=== PATIENT | male | born 1990 | race Caucasian/White ===

== ENCOUNTER 2018-09-09 04:11 | Observation (INO) | payer BC ==
[~2018-09-09] VITALS: Ht 177.8 cm; Wt 90.7 kg
[2018-09-09] VITALS (18 sets, daily range): BP systolic 100–149; BP diastolic 45–95
--- NOTE | 2018-09-09 04:23 | ER Report ---
History and Physical Time Seen By MD: 04:20 Hx. of Stated Complaint: PATIENT STATES THAT HE HAS UPPER ABD. PAIN AND NAUSEA THAT HAS BEEN GOING ON FOR THE LAST HOUR THIS AM (CATHY BLANCO MD) Time Seen By MD: 07:15 (SACHA STYLES DO) HPI/ROS CHIEF COMPLAINT: abdominal pain HISTORY OF PRESENT ILLNESS: This is a 28 year old male. He has abdominal pain, central in the epigastric and periumbilical area, seems to spread outward to the right and left from there, severe. Nothing really makes it worse or better. No fevers or chills. Has been nauseated, but no vomiting. No history of abdominal surgeries. No problems with stomach, liver, pancreas, gallbladder. No sick co ntacts. Does not think any bad food or liquid exposures. Has increased gurgling in bowels and had a soft loose stool just prior to coming in to the hospital. Normal urination. (CATHY BLANCO MD) HPI/ROS Please see Dr. Blanco note (SACHA STYLES DO) Allergies: Coded Allergies: amoxicillin (Verified Allergy, Mild, rash, 09/09/18) Penicillins (Verified Allergy, Unknown, 09/09/18) Home Meds No Active Prescriptions or Reported Meds Reviewed Nurses Notes: Yes (CATHY BLANCO MD) Hx Substance Use Disorder: No Hx Alcohol Use: Yes (OCC.) (CATHY BLANCO MD) Constitutional Vital Sign - Last 24 Hours 09/09/18 09/09/18 09/09/18 09/09/18 04:11 04:13 04:15 04:17 Temp 98.3 Pulse ??? 59 Resp 18 B/P (MAP) 123/73 (90) 128/71 (90) 123/73 Pulse Ox 95 O2 Delivery Room Air 09/09/18 09/09/18 09/09/18 09/09/18 04:30 04:41 04:45 05:00 Pulse 65 B/P (MAP) 134/89 (104) 113/51 (71) 125/69 (87) Pulse Ox 92 09/09/18 09/09/18 09/09/18 09/09/18 05:30 05:45 06:03 06:03 Pulse 53 B/P (MAP) 138/76 (96) 136/64 (88) 144/82 (102) 144/82 (102) Pulse Ox 96 09/09/18 09/09/18 09/09/18 09/09/18 06:30 06:33 07:00 07:03 Pulse 66 64 B/P (MAP) 128/69 (88) 131/78 (95) Pulse Ox 95 91 09/09/18 09/09/18 09/09/18 09/09/18 07:28 07:48 08:08 08:08 Pulse 68 60 58 Pulse Ox 97 98 O2 Flow Rate 2.0 (SACHA STYLES DO) Physical Exam General Appearance: The patient is alert. Acute distress due to the pain. Non-toxic in appearance. Eyes: Pupils are equal, round. No pallor, injection or icterus. ENT: Mucous membranes are moist. Normal oral mucosa. Posterior oropharynx is n ormal. Respiratory: Lungs are clear to auscultation. Cardiovascular: Regular rate and rhythm. No murmurs, gallops or rubs. Normal capillary refill. Gastrointestinal: Abdomen is tender periumbilical and epigastric, discomfort across to left upper and right side. Nondistended. Guarding, but no rebound. Hyperactive bowel sounds. No costovertebral angle tenderness with percussion. Neurological: Alert and oriented x3. Skin: Warm and dry. No rashes. Musculoskeletal: No tenderness in palpation of the back and spine. DIFFERENTIAL DIAGNOSIS: After history and physical exam, differential diagnosis was considered for abdominal pain including but not limited to appendicitis, cholecystitis, gastritis, pancreatitis, gastroenteritis and urinary tract infection. (CATHY BLANCO MD) Physical Exam Please see Dr. Blanco's note (SACHA STYLES DO) Medical Decision Making Data Points Result Diagram: 09/09/18 0419 09/09/18 0419 Laboratory Hematology Test 09/09/18 04:19 White Blood Count 12.1 k/uL (4.5-11.0) H Red Blood Count 4.85 M/uL (4.00-5.60) Hemoglobin 15.2 g/dL (14.0-18.0) Hematocrit 43.7 % (42.0-52.0) Mean Corpuscular Volume 90.1 fL (80.0-96.0) Mean Corpuscular Hemoglobin 31.3 pg (26.0-33.0) Mean Corpuscular Hemoglobin Concent 34.7 g/dL (32.0-36.0) Red Cell Distribution Width 12.0 % (11.5-14.5) Platelet Count 242 K/uL (150-450) Mean Platelet Volume 8.1 fL (7.2-11.1) Neutrophils (%) (Auto) 71.8 % (39.4-72.5) Lymphocytes (%) (Auto) 20.2 % (17.6-49.6) Monocytes (%) (Auto) 6.9 % (4.1-12.4) Eosinophils (%) (Auto) 0.7 % (0.4-6.7) Basophils (%) (Auto) 0.4 % (0.3-1.4) Nucleated RBC Relative Count (auto) 0.0 /100WBC Neutrophils # (Auto) 8.7 K/uL (2.0-7.4) H Lymphocytes # (Auto) 2.5 K/uL (1.3-3.6) Monocytes # (Auto) 0.8 K/uL (0.3-1.0) Eosinophils # (Auto) 0.1 K/uL (0.0-0.5) Basophils # (Auto) 0.0 K/uL (0.0-0.1) Nucleated RBC Absolute Count (auto) 0.00 K/uL Chemistry Test 09/09/18 04:19 Sodium Level 139 mmol/L (137-145) Potassium Level 3.6 mmol/L (3.5-5.0) Chloride Level 101 mmol/L (98-107) Carbon Dioxide Level 27 mmol/L (22-30) Blood Urea Nitrogen 18 mg/dl (9-21) Creatinine 1.20 mg/dl (0.66-1.25) Glomerular Filtration Rate Calc > 60.0 Random Glucose 96 mg/dl (75-110) Calcium Level 9.8 mg/dl (8.4-10.2) Total Bilirubin 0.6 mg/dl (0.2-1.3) Aspartate Amino Transf (AST/SGOT) 33 U/L (0-35) Alanine Aminotransferase (ALT/SGPT) 43 U/L (0-56) Alkaline Phosphatase 62 U/L (0-126) Total Protein 7.6 g/dl (6.3-8.2) Albumin 4.6 g/dl (3.5-5.0) Amylase Level 80 U/L (0-110) Lipase 76 U/L (23-300) Serology Test 09/09/18 04:19 Helicobacter pylori IgG Antibody Negative (NEGATIVE) Urinalysis Test 09/09/18 06:00 Urine Color Yellow Urine Clarity Clear Urine pH 6.0 pH (4.8-9.5) Urine Specific [place] 1.059 Urine Protein Negative mg/dL (NEGATIVE) Urine Glucose (UA) Negative mg/dL (NEGATIVE) Urine Ketones Negative mg/dL (NEGATIVE) Urine Blood Negative (NEGATIVE) Urine Nitrite Negative (NEGATIVE) Urine Bilirubin Negative (NEGATIVE) Urine Urobilinogen Negative mg/dL (0.2-1.9) Urine Leukocyte Esterase Negative (NEGATIVE) Urine RBC 1 /HPF (0-2/HPF) Urine WBC <1 /HPF (0-5/HPF) Urine Squamous Epithelial Cells Few /LPF (</=FEW) Urine Transitional Epithelial Cells Few /LPF (NONE-FEW) Urine Bacteria Negative /HPF (NONE-FEW) Urine Mucus Few /HPF (NONE-FEW) (STYLES,SACHA S DO) EKG/Imaging Imaging Study: CT scan of the abdomen and pelvis with intravenous contrast Indication: Epigastric pain Comparison study: None Contrast used: 75 mL Isovue-370 Technique: Multiple axial images were obtained through the abdomen and pelvis following intravenous administration of iodinated contrast. Coronal and sagittal two-dimensional reconstructions were made from the original data set. One of the following dose optimization techniques was utilized in the performance of this exam: Automated exposure control; adjustment of the mA and/or kV according to the patient's size; or use of an iterative reconstruction technique. Specific details can be referenced in the facility's radiology CT exam operational policy. Findings: Lung bases: Unremarkable Liver: Unremarkable Spleen: Unremarkable Gallbladder: Unremarkable Stomach: Unremarkable Small bowel:The small bowel is unremarkable in appearance. Large bowel: The large bowel is unremarkable in appearance. The appendix is visualized. The tip of the appendix is enlarged measuring 1.3 cm. Pancreas: Unremarkable Adrenal glands: Unremarkable Kidneys: Unremarkable Retroperitoneum: Unremarkable Pelvis: Unremarkable Bony structures: Unremarkable IMPRESSION: Abnormal appearance of the appendix. The tip of the appendix is enlarged, measuring 1.3 cm. This appears to represent a tip appendicitis. Dr. Blanco was made aware of these findings at 5:55 AM. Report Dictated By: Joe Castle at 09/09/2018 5:47 AM (CATHY BLANCO MD) Imaging PATIENT NAME: Aravind Knapp : 1990 MR: [id number] V: [id number] EXAM DATE: [id number] ORDERING PHYSICIAN: CATHY BLANCO TECHNOLOGIST: Location: [facility] - [place] Patient: Aravind Knapp : 1990 Visit/Account:[id number] Date of Sevice: 09/09/2018 Study: CT scan of the abdomen and pelvis with intravenous contrast Indication: Epigastric pain Comparison study: None Contrast used: 75 mL Isovue-370 Technique: Multiple axial images were obtained through the abdomen and pelvis following intravenous administration of iodinated contrast. Coronal and sagittal two-dimensional reconstructions were made from the original data set. One of the following dose optimization techniques was utilized in the performance of this exam: Automated exposure control; adjustment of the mA and/or kV according to the patient's size; or use of an iterative reconstr uction technique. Specific details can be referenced in the facility's radiology CT exam operational policy. Findings: Lung bases: Unremarkable Liver: Unremarkable Spleen: Unremarkable Gallbladder: Unremarkable Stomach: Unremarkable Small bowel:The small bowel is unremarkable in appearance. Large bowel: The large bowel is unremarkable in appearance. The appendix is visualized. The tip of the appendix is enlarged measuring 1.3 cm. Pancreas: Unremarkable Adrenal glands: Unremarkable Kidneys: Unremarkable Retroperitoneum: Unremarkable Pelvis: Unremarkable Bony structures: Unremarkable IMPRESSION: Abnormal appearance of the appendix. The tip of the appendix is enlarged, measuring 1.3 cm. This appears to represent a tip appendicitis. Dr. Blanco was made aware of these findings at 5:55 AM. (SACHA STYLES DO) ED Course/Re-evaluation Clinical Indication for ER IV: Hydration, IV Access ED Course Initial evaluation as above. Patient had an IV started and was given 2 mg of morphine IV, 4 mg of Zofran IV, and Protonix 40 mg IV as well as a liter of normal saline. No improvement in pain with the morphine. Labs show very mild elevation of white blood cell count at 12.1 but no shift. The rest the labs are unremarkable. CT scan does show an abnormal appearance of the appendix at the tip, consistent with possible appendicitis. Reevaluation shows no change in the exam. Discussed the case with our surgeon who thought this could represent an early appendicitis and recommended observation for several hours and reevaluation. Discussed this with the patient and he will remain nothing by lilly th, we will provide another 4 mg of morphine to help with pain at this time and continue reevaluation's. (CATHY BLANCO MD) ED Course Patient is a 28-year-old male here with complaints of diffuse abdominal pain which started this morning. CT imaging was concerning for appendicitis. I assumed patient care from Dr. Blanco at shift change at 7:00. I examined the saeed ent shortly after shift change in patient reports migration of pain to the central abdomen as well as right lower quadrant. I discussed the patient with Dr. Bernstein who accepted the patient to surgery service. Patient was stable at time of admission. Levaquin and Flagyl given for antimicrobial coverage. Decision to Disposition Date: Sep 09, 2018 Decision to Disposition Time: 08:33 (SACHA STYLES DO) Depart Departure Latest Vital Signs Vital Signs Date Time Temp Pulse Resp B/P (MAP) Pulse Ox O2 Delivery O2 Flow Rate FiO2 09/09/18 08:08 2.0 09/09/18 08:08 58 98 09/09/18 07:00 131/78 (95) 09/09/18 04:17 98.3 18 Room Air (SACHA STYLES DO) Impression: Primary Impression: Appendicitis Condition: Improved Disposition: Admitted from ER New Scripts No Active Prescriptions or Reported Meds CATHY BLANCO MD Sep 09, 2018 04:23 SACHA STYLES DO Sep 09, 2018 07:18
[2018-09-09] MEDS ORDERED: NS(*) 0.9% 1000 ML BAG 1,000 ML IV ONE ×2 (04:44→08:55)
[2018-09-09] MEDS ORDERED: PANTOPRAZOLE SOD 40 MG IV VIAL IVP ONE (04:45)
[2018-09-09] MEDS ORDERED: MORPHINE 2 MG/ML SYR IVP ONE (04:45)
[2018-09-09] MEDS ORDERED: ONDANSETRON 4 MG/2 ML VIAL IVP ONE ×3 (04:45→10:40)
[2018-09-09] MEDS ORDERED: IOPAMIDOL 76% 100 ML INFUS BTL 100 ML ONE (04:59)
[2018-09-09 05:00] LABS: PLATELET COUNT, AUTOMATED 242 K/uL (150-450)
--- NOTE | 2018-09-09 06:07 | RADIOLOGY IMAGING REPORT ---
FACILITY: [facility] - [place] PATIENT NAME: Aravind Knapp : 1990 MR: [id number] V: [id number] EXAM DATE: ORDERING PHYSICIAN: CATHY BLANCO TECHNOLOGIST: Location: [facility] Patient: Aravind Knapp : 1990 Visit/Account:[id number] Date of Sevice: 09/09/2018 Study: CT scan of the abdomen and pelvis with intravenous contrast Indication: Epigastric pain Comparison study: None Contrast used: 75 mL Isovue-370 Technique: Multiple axial images were obtained through the abdomen and pelvis following intravenous a dministration of iodinated contrast. Coronal and sagittal two-dimensional reconstructions were made f rom the original data set. One of the following dose optimization techniques was utilized in the performance of this exam: Autom ated exposure control; adjustment of the mA and/or kV according to the patient's size; or use of an i terative reconstruction technique. Specific details can be referenced in the facility's radiology C T exam operational policy. Findings: Lung bases: Unremarkable Liver: Unremarkable Spleen: Unremarkable Gallbladder: Unremarkable Stomach: Unremarkable Small bowel:The small bowel is unremarkable in appearance. Large bowel: The large bowel is unremarkable in appearance. The appendix is visualized. The tip of th e appendix is enlarged measuring 1.3 cm. Pancreas: Unremarkable Adrenal glands: Unremarkable Kidneys: Unremarkable Retroperitoneum: Unremarkable Pelvis: Unremarkable Bony structures: Unremarkable IMPRESSION: Abnormal appearance of the appendix. The tip of the appendix is enlarged, measuring 1.3 c m. This appears to represent a tip appendicitis. Dr. Blanco was made aware of these findings at 5:55 AM. Report Dictated By: Joe Castle at 09/09/2018 5:47 AM Report E-Signed By: Joe Castle at 09/09/2018 5:59 AM WSN:[id number]
[2018-09-09] MEDS ORDERED: MORPHINE 4 MG/ML SDV IVP ONE (06:25)
[2018-09-09] MEDS ORDERED: HYDROMORPHONE HCL 1 MG/ML SYRINGE IVP ONE (07:30)
[2018-09-09] MEDS ORDERED: HYDROmorphone HCL 2 MG/ML SDV IVP ONE (08:35)
[2018-09-09] MEDS ORDERED: metroNIDAZOLE* 500MG/100ML BAG 100 ML IVPB ONE (08:35)
[2018-09-09] MEDS ORDERED: LEVOFLOXACIN/D5W 750 MG/150 ML 150 ML IVPB ONE (08:35)
[2018-09-09] MEDS: HYDROmorphone HCL 2 MG/ML SDV IVP ONE ×2 (10:35→10:44)
[2018-09-09] MEDS ORDERED: DEXAMETHASONE SOD 20MG/5 ML VL IVP ONE (10:40)
[2018-09-09] MEDS: HYDROmorphone HCL 2 MG/ML SDV IVP PRN ×2 (10:44→11:05)
[2018-09-09] MEDS ORDERED: MIDAZOLAM 2 MG/2 ML VIAL IVP PRN (11:30)
[2018-09-09] MEDS ORDERED: BUPIVACAINE/EPI 0.5% 50ML VIAL INFIL ONE (12:51)
[2018-09-09] MEDS ORDERED: HYDROmorphone HCL 2 MG/ML SDV IVP PRN ×2 (14:05→18:00)
[2018-09-09] MEDS ORDERED: APAP/HYDROCODONE 325/7.5 TAB PO PRN (14:05)
[2018-09-09] MEDS ORDERED: NS(*) 0.9% 1000 ML BAG 1,000 ML IV SCH (14:05)
[2018-09-09] MEDS ORDERED: ONDANSETRON 4 MG/2 ML VIAL IVP PRN (14:05)
--- NOTE | 2018-09-09 14:10 | Post Operative Progress Note ---
Post Operative Progress Note Date: Sep 09, 2018 Time: 14:03 Surgeon: dr. dre hardy #[id number] Brick Grader: none Anesthesia: gen, local dr. pettit Pre-Op Diagnosis: acute appendicitis Post-Op Diagnosis: same Findings: acute appendicitis Procedure(s): lap appy Specimen Removed:(May be N/A): appendix Complications: none Estimated Blood Loss: minimal Date OP Note Dictated: Sep 09, 2018 Time OP Note Dictated: 14:04 NÉSTOR HARDY Sep 09, 2018 14:10
[2018-09-09] MEDS ORDERED: fentaNYL CITR 100 MCG/2 ML AMP ONE (14:13)
[2018-09-09] MEDS: KETOROLAC 30 MG/ML VIAL IVP SCH ×2 (18:14→23:35)
[2018-09-10 04:55] VITALS: BP 111/62
--- NOTE | 2018-09-10 05:17 | OPERATIVE REPORT 1 ---
EVENT DATE: September 09, 2018 SURGEON: Fei Bernstein MD ANESTHESIOLOGIST: Medardo Kumari MD ANESTHESIA: General and local. GUNNER MATE: None. PREOPERATIVE DIAGNOSIS Acute appendicitis. POSTOPERATIVE DIAGNOSIS Acute appendicitis. PROCEDURE PERFORMED Laparoscopic appendectomy. FLUIDS IV crystalloid. ESTIMATED BLOOD LOSS Minimal. SPECIMENS Appendix. COMPLICATIONS None. INDICATIONS FOR PROCEDURE This is a 28-year-old male with epigastric pain beginning last night. This then migrated to his right lower quadrant by this morning. On physical exam, patient was stable. His abdomen was soft. He was tender to palpation in the right lower quadrant. Imaging was consistent with acute appendicitis. Risks and benefits of the procedure were explained and consent was signed. DESCRIPTION OF PROCEDURE Patient was taken to the operating room and placed in the supine position. General anesthesia was administered per anesthesia team. Patient was prepped and draped in normal sterile fashion. Local analgesia was injected to the dermis above the umbilicus, and a small incision was made. The umbilical stump was grasped and elevated. A Veress needle was inserted. Pneumoperitoneum was achieved. Veress needle was removed. A 5 mm port was advanced. After injecting local analgesia, under direct vision, a 5 mm suprapubic port and a 12 mm left lower quadrant port were placed. I inspected the abdomen. There was no injury upon entry. The appendix was quickly identified. It was inflamed at the tip consistent with acute appendicitis. LigaSure was used to divide the mesoappendix down to the base of the appendix, and a laparoscopic 45 mm blue load was fired across the base of the appendix. The appendix was removed with an Endo Catch bag through the left lower quadrant port site. I inspected the right lower quadrant. This was irrigated. Irrigant returned clear. Hemostasis was assured. Staple line was confirmed to be intact. Fascial closure device with an 0 Vicryl stitch was used to close the fascia of the left lower quadrant port site. Hemostasis was assured. Suprapubic port was removed under direct vision. Hemostasis was assured. Pneumoperitoneum was relieved. Final port was removed. All skin incisions were closed with 4-0 Monocryl subcuticular stitches. More local analgesia was injected. Appropriate dressings were applied. Patient tolerated the procedure well. There were no complications. [facility]
[2018-09-10] MEDS: KETOROLAC 30 MG/ML VIAL IVP SCH (05:56)
--- NOTE | 2018-09-10 08:01 | Short(Outpt) Discharge Summary ---
Discharge Summary Reason for Hosp/Final Diag: (1) Appendicitis Status: Acute Hospital Course & Plan: 09/10/18: doing well. pain controlled. ambulating. will d/c home if tolerates food. Departure Discharge to: Home Discharge Instructions Home Meds No Active Prescriptions or Reported Meds Diet: Regular Activity: No Heavy Lifting Special Instructions: no lifting more than 15 lbs for 3 wks. ok to shower. take stool softener while taking pain meds. f/u dr. dre hardy 2 wks ([phone]). NÉSTOR HARDY Sep 10, 2018 08:01
[2018-09-10] MEDS ORDERED: TRAM-420 PO (08:02)
[2018-09-10 08:30] VITALS: Ht 177.8 cm; Wt 90.7 kg
[2018-09-10] MEDS ORDERED: ENOXAPARIN 40 MG/0.4ML SYR SC SCH (09:00)
[2018-09-10 09:33] VITALS: BP 123/59
== END 2018-09-10 07:58 | disposition home or self-care (01) ==
LOC: ER 05:03 → OR 09:59 → MED 15:10
PROVIDERS: ADMIT Surgery; ATTEND Surgery
DX: K37 Unspecified appendicitis (principal)
CPT/HCPCS: 44970; 74177; 81001; 82150; 83690; 85025; 86677; 88304; 96361; 96365; 96375; 96376; 99284; C9113; G0378; J1100; J1170; J1885; J1956; J2270; J2405; J3010; J3490; J7030; Q9967; 82040; 82247; 82310; 82374; 82435; 82565; 82947; 84075; 84132; 84155; 84295; 84450; 84460; 84520